=== PATIENT | male | born 1985 | race African-American/Black ===

== ENCOUNTER 2019-07-01 03:17 | Emergency (ER) | payer SELFPAY ==
[2019-07-01] MEDS ORDERED: Haloperidol Lactate 5 MG/ML VIAL ONE (03:26)
[2019-07-01] MEDS ORDERED: diphenhydrAMINE 25 MG CAP ONE (03:26)
[2019-07-01] MEDS ORDERED: Lorazepam 2 MG/ML VIAL ONE (03:26)
[2019-07-01] MEDS ORDERED: diphenhydrAMINE 50 MG/ML VIAL ONE (03:27)
[2019-07-01 04:51] LABS: #Eosinphils 0.1 thou/uL (0.0-0.7); #Lymphocytes 1.3 thou/uL (1.20-3.40); #Monocytes 0.5 thou/uL (0.11-0.59); %Basophils 0.5 % (0.0-1.0); %Eosinophils 0.9 % (0.0-10.0); %Lymphocytes 19.1 % (21.0-51.0); %Neutrophils 72.5 % (42.0-75.0); Hemoglobin 13.5 g/dL (14.0-18.0); Mean Corpuscular HGB CONC 33.2 g/dL (32.0-36.0); Mean Corpuscular Hemoglobin 26.4 pg (27.0-31.0); Mean Corpuscular Volume 79.5 fL (78.0-98.0); Mean Platelet Volume 8.6 fL (7.4-10.4); Platelet Count 214 thou/uL (130-400); RBC Distribution Width 13.3 % (11.5-14.5); Red Blood Cell (RBC) Count 5.11 mill/uL (4.70-6.10)
[2019-07-01 05:08] LABS: Albumin 3.4 g/dL (3.5-5.0)
[2019-07-01 05:10] LABS: Chloride 106 mmol/L (98-107); Potassium 3.6 mmol/L (3.5-5.1); Sodium 139 mmol/L (136-145)
[2019-07-01 05:11] LABS: Calcium 8.4 mg/dL (7.8-10.44); Globulin 3.2 g/dL (2.4-3.5); Glucose 85 mg/dL (70-105); Protein, Total 6.6 g/dL (6.0-8.3)
[2019-07-01 05:12] LABS: Anion Gap 17 mmol/L (10-20); Carbon Dioxide 20 mmol/L (22-29)
[2019-07-01 05:13] LABS: Bilirubin, Total 0.4 mg/dL (0.2-1.2)
[2019-07-01 05:14] LABS: Alkaline Phosphatase 69 U/L (40-110)
[2019-07-01 05:15] LABS: Acetaminophen Less than 6.0 mcg/mL (10.0-30.0); Alcohol Less than 10 mg/dL (Less than 10); BUN (Urea Nitrogen) 11 mg/dL (8.9-20.6); CK (CPK) 763 U/L (30-200); Calc. Creatinine Clearance 0 mL/min (70-130); Estimated GFR-MDRD 88; Salicylate Less than 8.0 mg/dL (15.0-30.0)
[2019-07-01 05:16] LABS: AST (SGOT) 30 U/L (5-34)
[2019-07-01 05:17] LABS: ALT (SGPT) 27 U/L (8-55)
--- NOTE | 2019-07-01 08:18 | CT ---
PRELIMINARY REPORT/[facility]/AFTER HOURS PROCEDURE CT HEAD WITHOUT INTRAVENOUS CONTRAST: CLINICAL HISTORY: Patient was found on the ground with drug paraphernalia around him. When the police came to arrest an d patient became altered and aggressive. Try to combat the police and tried to run off. Patient was p ut in handcuffs and was brought to the ED. Here patient also tried to get aggressive with staff. Is u nable to give a history or follow commands. No obvious trauma to the head. TECHNIQUE: Axial computed tomography images of the head/brain without intravenous contrast. COMPARISON: None provided. FINDINGS: BRAIN: No acute intraparenchymal hemorrhage. No mass lesion. No CT evidence for acute territorial inf arct. No midline shift or extra-axial collection. VENTRICLES: No hydrocephalus. ORBITS: The orbits are unremarkable. SINUSES AND MASTOIDS: Mucosal thickening within the left maxillary sinus. SOFT TISSUES: No significant facial or scalp soft tissue swelling evident. No radiopaque foreign body is seen. BONES: No acute skull fracture. IMPRESSION: No acute intracranial abnormality. ELECTRONICALLY SIGNED BY: Isidro Farmer M.D. Jul 01, 2019 4:09:20 AM CDT This report is intended for review by the ordering physician only, in accordance of law. If you recei ve this report in error, please call [facility] at [phone]. FINAL REPORT EMERGENT AFTER HOURS CT HEAD WITHOUT CONTRAST: HISTORY: Patient found down on ground with drug paraphernalia. Altered mental status and aggressiveness. IMPRESSION: 1. No acute intracranial abnormalities demonstrated. 2. Mucosal thickening in the left maxillary antrum. 3. Findings are in agreement with the preliminary report by [facility]. CODE QA POS: OFF
[2019-07-01 13:38] LABS: Amphetamine Detected (NotDetected); Barbiturates Screen Not Detected (NotDetected); Benzodiazepine Screen Detected (NotDetected); Cocaine Metabolite Screen Not Detected (NotDetected); Medtox Control Line Valid? VALID (VALID); Medtox Reader # READER 4; Methadone Not Detected (NotDetected); Methamphetamine Detected (NotDetected); Opiate Screen Not Detected (NotDetected); Oxycodone Screen Not Detected (NotDetected); Phencyclidine (PCP) Detected (NotDetected); THC/Cannabinoid Screen Not Detected (NotDetected); Tricyclic Screen Not Detected (NotDetected)
[2019-07-01] MEDS ORDERED: Bacitracin 1 PK ONE (18:45)
== END 2019-07-01 20:40 | disposition home or self-care (01) ==
LOC: ERS 03:17
DX: F15.159 Other stimulant abuse with stimulant-induced psychotic disorder, unspecified (principal)
CPT/HCPCS: 36415; 51701; 70450; 80053; 80306; 80307; 82550; 85025; 96360; 96361; 96372; J1200; J1630; J2060; Q0163

== ENCOUNTER 2019-08-31 10:53 | Emergency (ER) | payer SELFPAY ==
[2019-08-31] MEDS ORDERED: Albuterol 200 PUFF (6.7GM INHALER) ONE (11:32)
[2019-08-31 11:51] LABS: Base Excess-Venous 0.9 mmol/L (-2.0 to 3.0); Bicarbonate (HCO3v) 24.8 mmol/L (22.0-28.0); CO2 Tension (PvCO2) 36.9 mmHg (40.0-50.0); Calcium, Ionized 1.08 mmol/L (See Comments:); Potassium 3.8 mmol/L (3.5-5.1); Sodium 140 mmol/L (138-145); vO2 Saturation-calc 98.3 % (60.0-85.0)
[2019-08-31 11:52] LABS: #Basophils 0.1 thou/uL (0.0-0.2); #Eosinphils 0.1 thou/uL (0.0-0.7); #Lymphocytes 1.8 thou/uL (1.20-3.40); #Monocytes 0.6 thou/uL (0.11-0.59); %Basophils 0.9 % (0.0-1.0); %Eosinophils 0.8 % (0.0-10.0); %Lymphocytes 21.4 % (21.0-51.0); %Monocytes 7.1 % (0.0-10.0); %Neutrophils 69.8 % (42.0-75.0); Hemoglobin 15.1 g/dL (14.0-18.0); Mean Corpuscular HGB CONC 31.5 g/dL (32.0-36.0); Mean Corpuscular Volume 79.3 fL (78.0-98.0); Mean Platelet Volume 8.7 fL (7.4-10.4); Platelet Count 249 thou/uL (130-400); RBC Distribution Width 13.3 % (11.5-14.5); Red Blood Cell (RBC) Count 6.03 mill/uL (4.70-6.10); White Blood Cell (WBC) Count 8.6 thou/uL (4.8-10.8)
[2019-08-31 12:24] LABS: Acetaminophen Less than 6.0 mcg/mL (10.0-30.0); Alcohol 57 mg/dL (Less than 10); Salicylate Less than 8.0 mg/dL (15.0-30.0)
[2019-08-31 12:28] LABS: ALT (SGPT) 35 U/L (8-55); AST (SGOT) 29 U/L (5-34); Albumin 4.1 g/dL (3.5-5.0); Alkaline Phosphatase 84 U/L (40-110); Anion Gap 14 mmol/L (10-20); BUN (Urea Nitrogen) 13 mg/dL (8.9-20.6); Bilirubin, Total 0.5 mg/dL (0.2-1.2); Calc. Creatinine Clearance 0 mL/min (70-130); Calcium 9.2 mg/dL (7.8-10.44); Carbon Dioxide 23 mmol/L (22-29); Chloride 104 mmol/L (98-107); Estimated GFR-MDRD 85; Globulin 3.5 g/dL (2.4-3.5); Glucose 83 mg/dL (70-105); Potassium 4.1 mmol/L (3.5-5.1); Protein, Total 7.6 g/dL (6.0-8.3); Sodium 137 mmol/L (136-145)
[2019-08-31 12:44] LABS: Bilirubin Negative (Negative); Blood, Urine Negative (Negative); Clarity Clear (Clear); Glucose, Urine (Dipstick) Normal (Negative); Leukocyte Negative Leu/uL (Negative); Nitrite Negative (Negative); Protein, Urine (Dipstick) 10 mg/dL (Neg-Trace); Urobilinogen Normal mg/dL (Less than 2)
[2019-08-31 12:54] LABS: Cocaine Metabolite Screen Not Detected (NotDetected); Medtox Reader # READER 4; Methamphetamine Detected (NotDetected); Phencyclidine (PCP) Detected (NotDetected); THC/Cannabinoid Screen Not Detected (NotDetected)
[2019-08-31 12:55] LABS: Amphetamine Detected (NotDetected); Barbiturates Screen Not Detected (NotDetected); Benzodiazepine Screen Not Detected (NotDetected); Medtox Control Line Valid? VALID (VALID); Methadone Not Detected (NotDetected); Opiate Screen Not Detected (NotDetected); Oxycodone Screen Not Detected (NotDetected); Tricyclic Screen Not Detected (NotDetected)
--- NOTE | 2019-08-31 13:53 | RAD ---
SINGLE VIEW OF THE CHEST: COMPARISON: 04/24/2012. HISTORY: Cough and unresponsiveness. FINDINGS: Single view of the chest shows a normal sized cardiomediastinal silhouette. There is no evidence of c onsolidation, mass, or pleural effusion. The bones are unremarkable. IMPRESSION: No evidence of acute cardiopulmonary disease. POS: EAA
--- NOTE | 2019-08-31 14:39 | CT ---
CT BRAIN WITHOUT CONTRAST: 08/31/19 HISTORY: Medical evaluation. Difficulty breathing and cough after being arrested. Altered mental status. TECHNIQUE: Multiple contiguous axial images were obtained in a CT of the brain without contrast. FINDINGS: The brain is normal in morphology and attenuation without focal lesions or confluent areas of infarct ion. There is no evidence of hydrocephalus, intracranial hemorrhage or extra-axial fluid collection. The calvarium and overlying soft tissues are unremarkable. Mucosal thickening is seen in the left max illary sinus. The mastoid air cells are well aerated. IMPRESSION: No evidence of acute intracranial abnormality. POS: EAA
--- NOTE | 2019-09-01 14:27 | EKG ---
Test Reason : Blood Pressure : / mmHG Vent. Rate : 088 BPM Atrial Rate : 088 BPM P-R Int : 140 ms QRS Dur : 080 ms QT Int : 360 ms P-R-T Axes : 068 -08 030 degrees QTc Int : 435 ms Normal sinus rhythm Minimal voltage criteria for LVH, may be normal variant Borderline ECG Confirmed by KISHA TORRE ([id number]), editor book VIKY CORRIGAN ([id number]) on 09/01/2019 2:27:38 PM Referred By: Confirmed By:KISHA Gutiérrez
== END 2019-08-31 13:54 | disposition home or self-care (01) ==
LOC: ERS 10:53
DX: F15.10 Other stimulant abuse, uncomplicated (principal); F16.10 Hallucinogen abuse, uncomplicated; F10.129 Alcohol abuse with intoxication, unspecified; Y90.2 Blood alcohol level of 40-59 mg/100 ml; J45.909 Unspecified asthma, uncomplicated
CPT/HCPCS: 36416; 51701; 70450; 71045; 80053; 80306; 80307; 81003; 82330; 82803; 83605; 84484; 85025; 93005

== ENCOUNTER 2022-11-29 02:51 | Emergency (ER) | payer OTHER, SELFPAY ==
[2022-11-29] MEDS ORDERED: Bacitracin 1 PK ONE (04:42)
[2022-11-29] MEDS ORDERED: Acetaminophen 500 MG TAB ONE (04:51)
== END 2022-11-29 05:17 | disposition home or self-care (01) ==
LOC: ERS 02:51
DX: S09.90XA Unspecified injury of head, initial encounter (principal); S00.531A Contusion of lip, initial encounter; S00.81XA Abrasion of other part of head, initial encounter; W17.89XA Other fall from one level to another, initial encounter
CPT/HCPCS: 99283

== ENCOUNTER 2023-01-09 01:03 | Emergency (ER) | payer OTHER | END 2023-01-09 03:46 | disposition home or self-care (01) | LOC: ERS 01:03 | DX: M79.632 Pain in left forearm (principal); M79.631 Pain in right forearm; I10 Essential (primary) hypertension; F17.210 Nicotine dependence, cigarettes, uncomplicated ==